=== PATIENT | female | born 1990 | race Caucasian/White ===

== ENCOUNTER → 2020-07-03 09:15 | Outpatient (BNVA) | payer BC, SELFPAY | PROVIDERS: PCP Internal Medicine; Visit Provider Advanced Practice Midwife | DX: Z34.90 Encounter for supervision of normal pregnancy, unspecified, unspecified trimester (principal) | CPT/HCPCS: 81025 ==

== ENCOUNTER → 2020-07-16 14:07 | Outpatient (BNVA) | payer BC, SELFPAY | PROVIDERS: PCP Internal Medicine; Visit Provider Advanced Practice Midwife | DX: Z13.89 Encounter for screening for other disorder (principal) | CPT/HCPCS: 99212 ==

== ENCOUNTER 2020-07-18 09:14 | Outpatient (REF) | payer BC, SELFPAY ==
--- NOTE | 2020-07-18 09:23 | US_ITS ---
EXAMINATION: OBSTETRICAL ULTRASOUND, FIRST TRIMESTER HISTORY: 30-year-old at 3 weeks of gestation NT screening COMPARISON: 06/28/2019 TECHNIQUE: Real time transabdominal imaging with color and M-mode Doppler. FINDINGS: A single, live IUP CRL of 81.1 mm c/w 14.1wks is noted. Heart Rate: 144 beats per minute. Normal yolk sac seen. NT was 1.2.mm. NB Present The embryo appears sonographically wnl for this GA. Left ovary is within normal, right ovary Fundal fibroid: 4.7 x 3.9 x 4.6 cm GESTATIONAL AGE: 1. Established GA: 13.3 wks 2. GA from AUA: 14.1 wks ESTIMATED DATE OF DELIVERY: 1. Established CANDELARIO: 01/20/2021 2. CANDELARIO from [facility]: 01/15/2021 US/US OB 1T nuc measure IMPRESSION: 1. A single live IUP 2. Size equals dates 3. NT of 1.2 mm MFM Consultation: I reviewed the ultrasound findings along with significance of NT measurement. The NT of less than 3mm is generally reassuring. However, the sensitivity for T21 detection is only 60%. I reviewed the availability of serum aneuploidy screening which includes cell-free DNA and placental protein based tests. I discussed the sensitivity, false-positive rate, and other limitations associated with each test. I also reviewed the availability of invasive diagnostic tests that are associated small but definite risk of miscarriage. We also reviewed the differences between screening tests and diagnostic tests. After our discussion, she opted for the First trimester screening that is based on cell-free DNA or non-invasive testing (NIPT). The result will be faxed to your office in approximately 7 days. A follow up at 18 weeks for survey has been scheduled. Thank you very much for this referral. Total Time spent 20 (2,10,8 ) min.
== END 2020-07-18 09:15 | disposition home or self-care (01) ==
LOC: HO.US 09:14
PROVIDERS: PCP Internal Medicine; Visit Provider Advanced Practice Midwife
DX: Z36.82 Encounter for antenatal screening for nuchal translucency (principal); Z34.90 Encounter for supervision of normal pregnancy, unspecified, unspecified trimester; Z3A.01 Less than 8 weeks gestation of pregnancy
CPT/HCPCS: 76813

== ENCOUNTER 2020-07-25 12:54 | Outpatient (REF) | payer BC, SELFPAY ==
[2020-07-25 15:23] LABS: MANUAL DIFF FLAG NO
[2020-07-25 15:39] LABS: Basophils Absolute Auto 0.1 X10*3/uL (0.0-0.2); Basophils Percent Auto 0.5 % (0-2); Eosinophils Absolute Auto 0.5 X10*3/uL (0.0-0.4); Eosinophils Percent Auto 4.8 % (0-4); Hematocrit 33.6 % (37-47); Hemoglobin 11.3 g/dl (12.0-16.0); Imm Gran Abs Auto 0.03 X10*3/uL (0.00-0.03); Imm Gran Pct Auto 0.3 % (0.0-0.4); Lymphocytes Absolute Auto 2.9 X10*3/uL (1.2-4.9); Lymphocytes Percent Auto 26.7 % (20-40); Mean Corpuscular HGB Conc 33.6 g/dl (31.0-35.0); Mean Corpuscular Volume 86.4 fL (80-98); Mean Platelet Volume 10.6 fL (9.4-12.3); Monocytes Absolute Auto 0.9 X10*3/uL (0.1-1.2); Neutrophils Absolute Auto 6.5 X10*3/uL (2.0-8.3); Neutrophils Percent Auto 59.7 % (45-73); Platelet Count 260 X10*3/uL (160-400); Red Blood Count 3.89 X10*6/uL (4.20-5.50)
[2020-07-25 16:17] LABS: Amphetamine Screen Urine Not Detected (Not Detect); Barbiturates, Urine Not Detected (Not Detect); Benzodiazepines Screen Urine Not Detected (Not Detect); Cannabinoid Screen Urine Not Detected (Not Detect); Cocaine Screen Urine Not Detected (Not Detect); Opiate Screen Urine Not Detected (Not Detect); Phencyclidine Screen Urine Not Detected (Not Detect)
[2020-07-26 13:21] LABS: BV Int Neg Control Negative (Negative); BV Int Pos Control Positive (Positive)
[2020-07-26 16:13] LABS: Varicella IgG Antibody <135.00 index
[2020-07-26 17:43] LABS: C. trachomatis RNA TMA NOT DETECTED (NOT DETECTED); N. gonorrhoeae RNA TMA NOT DETECTED (NOT DETECTED)
[2020-07-28 08:04] LABS: HIV AB/AG Nonreactive (Nonreactive); HIV Num 1 0.05 S/CO (0.00-0.99); ~HepC Num1 0.15 S/CO (0.00-0.79); ~Hepatitis C Antibody Nonreactive (Nonreactive)
[2020-07-28 08:23] LABS: HBsAGNum1 0.19 S/CO (0.00-0.99); Hepatitis B Surface Antigen Negative (Negative)
[2020-07-28 14:32] LABS: Syphilis Screen Nonreactive (Nonreactive)
== END 2020-07-25 12:55 | disposition home or self-care (01) ==
LOC: HO.LAB 12:54
PROVIDERS: PCP Internal Medicine; Visit Provider Advanced Practice Midwife
DX: O34.219 Maternal care for unspecified type scar from previous cesarean delivery (principal); Z3A.14 14 weeks gestation of pregnancy
CPT/HCPCS: 80307; 81003; 85025; 86762; 86780; 86787; 86803; 86850; 86900; 86901; 87086; 87340; 87389; 87480; 87491; 87510; 87591; 87660; 88142; 99212

== ENCOUNTER 2020-08-22 09:03 | Outpatient (REF) | payer BC, SELFPAY ==
--- NOTE | ~2020-08-22 | US_ITS ---
EXAMINATION: US OBSTETRICAL CLINICAL INFORMATION: 30-year-old at 18.3 weeks of gestation Screening for anomaly COMPARISON: 07/18/2020 TECHNIQUE: Real-time transabdominal ultrasound was performed using C1-5 megahertz transducer. Transvaginal ultrasound was performed using an endovaginal probe. FINDINGS: A single, active, fetus is seen in breech presentation. The placenta is anterior without previa, and the amniotic fluid volume is wnl. MEASUREMENTS: 1. Biparietal Diameter: 4.1 cm; 18.4 wks 2. Occipital Frontal Diameter: 5.3 cm 3. Head Circumference: 15.5 cm; 18.4 wks 4. Abdominal Circumference: 12.9 cm; 18.4 wks 5. Femur Length: 2.7 cm; 18.1 wks 6. Humerus Length: 2.6 cm; 18.2 wks 7. Tibia Length: 2.4 cm; 18.4 wks 8. Ulna Length: 2.4 cm; 18.4 wks 9. Lateral ventricle: 0.6 cm 10. Cerebellum: 1.9 cm; 19.4 wks 11. Cisterna Magna: 0.6 cm 12. Nuchal Fold: 2.5 mm 13. Heart Rate: 134 beats per minute Rt ovary: Unable to visualize Lt ovary: normal Cervical length 3.1 cm on T/V On transvaginal ultrasound, an uterine fibroid 6.4 x 4.5 x 4.7 cm located in the posterior lower uterine segment and is pushing the internal cervical canal anteriorly. In addition heterogeneous soft tissue is noted. The level of the internal canal with the blood vessel that has the maternal arterial signal, suggestive of the endocervical polyp. GESTATIONAL AGE: 1. Established GA: 18.3 wks 2. GA from AUA: 18.4 wks ESTIMATED DATE OF DELIVERY: 1. Established CANDELARIO: 01/20/2021 2. CANDELARIO from AUA: 01/19/2021 ANATOMY: The visualized anatomy includes but not limited to: 1. Cranium: Normal 2. Intracranial anatomy: cavum septum pellucidi, lateral ventricles, choroid plexus, cerebellum, posterior fossa, third and fourth ventricles. 3. face: orbits, lip/palate, profile, nasal bone 4. Heart: four-chamber view of the heart, ventricular septum, foramen ovale, pulmonary vein, left and right outflow tracts, three-vessel view, 3 vessel trachea view, aortic and ductal arches, situs.. 5. Diaphragm: Normal 6. Abdominal wall: Normal 7. Cord Insertion: Normal 8. Spine: Cervical, thoracic, lumbar, sacral. 9. Stomach: Normal size and shape 10. Right Kidney: Normal 11. Left Kidney: Normal 12. 3 vessel cord: Normal 13. Upper extremity: Open hands, fifth digit. 14. Lower extremity: Tibia, fibula, bilateral feet. 15. Bladder: Normal 16. Genitalia: Female, patient aware US/ OB /maternal detail IMPRESSION: 1. Single, living, intrauterine with appropriate biometry. 2. Normal survey 3. Uterine fibroid in the lower posterior uterine segment impinging on the cervical canal. 4. Normal cervical length, endocervical polyp at the level of the internal os. DISCUSSION: I reviewed today's ultrasound findings. We discussed the limitations of ultrasound in diagnosing aneuploidy and other congenital abnormalities. I reviewed the differences between screening test and diagnostic test. Amniocentesis was discussed and declined. I informed her of the presence of uterine fibroid in the posterior lower uterine segment that is pushing up against the cervix deviating the endocervical canal anteriorly. She has had a delivery and is planning on a repeat elective delivery. Her fibroid noted today should not be in the operative field. I advised her about the possibility of the fibroid degeneration. I reassured her that it is self limiting and can be managed symptomatically. She was informed that the baseline incidence of congenital abnormalities is approximately 3-5%. Not all these conditions are diagnosable in utero. RECOMMENDATIONS: 1. No further ultrasound has been scheduled at this time. Thank you for allowing me to participate in her care. Visiting time 30 minutes. Majority of this visit was spent reviewing and discussing her care.
== END 2020-08-22 09:04 | disposition home or self-care (01) ==
LOC: HO.US 09:03
PROVIDERS: Visit Provider Advanced Practice Midwife
DX: O35.9XX0 Maternal care for (suspected) fetal abnormality and damage, unspecified, not applicable or unspecified (principal); Z12.4 Encounter for screening for malignant neoplasm of cervix
CPT/HCPCS: 76811; 76817

== ENCOUNTER 2020-08-27 09:03 | Outpatient (REF) | payer BC, SELFPAY | END 2020-08-27 09:04 | disposition home or self-care (01) | LOC: HO.LAB 09:03 | PROVIDERS: PCP Internal Medicine; Visit Provider Obstetrics & Gynecology | DX: O34.219 Maternal care for unspecified type scar from previous cesarean delivery (principal); O99.012 Anemia complicating pregnancy, second trimester; D64.9 Anemia, unspecified; Z3A.19 19 weeks gestation of pregnancy; Z79.899 Other long term (current) drug therapy | CPT/HCPCS: 81003; 87086; 99212 ==

== ENCOUNTER → 2020-09-24 10:49 | Outpatient (BNVA) | payer BC, SELFPAY | PROVIDERS: PCP Internal Medicine; Visit Provider Advanced Practice Midwife | DX: Z34.90 Encounter for supervision of normal pregnancy, unspecified, unspecified trimester (principal); Z3A.23 23 weeks gestation of pregnancy | CPT/HCPCS: 81003; 99212 ==

== ENCOUNTER 2020-10-30 11:31 | Outpatient (REF) | payer OTHER, SELFPAY ==
[2020-10-30 14:33] LABS: Hematocrit 31.1 % (37-47); Hemoglobin 10.1 g/dl (12.0-16.0); Mean Corpuscular HGB Conc 32.5 g/dl (31.0-35.0); Mean Corpuscular Hemoglobin 29.4 pg (27.0-33.0); Mean Corpuscular Volume 90.7 fL (80-98); Mean Platelet Volume 10.6 fL (9.4-12.3); Platelet Count 248 X10*3/uL (160-400); Red Blood Count 3.43 X10*6/uL (4.20-5.50); Red Cell Distribution Width 14.1 % (11.0-16.0); White Blood Count 9.1 X10*3/uL (4.8-10.8)
[2020-10-30 14:48] LABS: Glucose 1 Hour PP 50gm Dose 77 mg/dL (60-140)
[2020-10-31 03:59] LABS: Syphilis Screen Nonreactive (Nonreactive)
[2020-10-31 09:55] LABS: CT PCR NOT DETECTED (Not Detect.); NG PCR NOT DETECTED (Not Detect.)
== END 2020-10-30 11:32 | disposition home or self-care (01) ==
LOC: HO.LAB 11:31
PROVIDERS: PCP Internal Medicine; Visit Provider Advanced Practice Midwife
DX: O99.013 Anemia complicating pregnancy, third trimester (principal); O34.219 Maternal care for unspecified type scar from previous cesarean delivery; Z3A.21 21 weeks gestation of pregnancy
CPT/HCPCS: 81003; 85027; 86780; 87491; 87591; 99212

== ENCOUNTER → 2020-11-13 09:41 | Outpatient (BNVA) | payer OTHER, SELFPAY | PROVIDERS: Visit Provider Advanced Practice Midwife | DX: O34.13 Maternal care for benign tumor of corpus uteri, third trimester (principal); D25.9 Leiomyoma of uterus, unspecified; N84.1 Polyp of cervix uteri; O99.013 Anemia complicating pregnancy, third trimester; O34.219 Maternal care for unspecified type scar from previous cesarean delivery; Z3A.30 30 weeks gestation of pregnancy | CPT/HCPCS: 81003; 99212 ==

== ENCOUNTER → 2020-11-27 09:43 | Outpatient (BNVA) | payer OTHER, SELFPAY | PROVIDERS: Visit Provider Obstetrics & Gynecology | DX: O34.219 Maternal care for unspecified type scar from previous cesarean delivery (principal); N84.1 Polyp of cervix uteri; O34.10 Maternal care for benign tumor of corpus uteri, unspecified trimester; D25.9 Leiomyoma of uterus, unspecified; Z3A.32 32 weeks gestation of pregnancy | CPT/HCPCS: 90471; 90715; 99212 ==

== ENCOUNTER 2020-11-28 09:43 | Outpatient (REF) | payer OTHER, SELFPAY ==
--- NOTE | ~2020-11-28 | US_ITS ---
EXAMINATION: OBSTETRICAL ULTRASOUND, Follow up HISTORY: 30-year-old at the 32.3 weeks of gestation Size date discrepancy Fibroid COMPARISON: 08/22/2020 TECHNIQUE: Real time transabdominal imaging with color and M-mode Doppler. PRESENTATION: Vertex PLACENTA LOCATION: Posterior without previa AMNIOTIC FLUID: LAURIE 12.3 MEASUREMENTS: 1. Biparietal Diameter: 8.0 cm; 32.0 wks 2. Head Circumference: 30.0 cm; 33.2 wks 3. Abdominal Circumference: 27.8 cm; 22.0 wks 4. Femur Length: 6.0 cm; 31.3 wks 5. Heart Rate: 149 beats per minute WEIGHT: EFW: 1850 grams (4 lbs 10 oz) -- 23 %. Normal views of the posterior fossa, lateral ventricles, four-chamber view of the heart, stomach, bladder and kidneys. Fibroid in the left lateral uterine wall was noted. 4.3 x 4.9 x 4.9 cm, stable BIOPHYSICAL PROFILE: Motion: 2 Tone: 2 Breathin Amniotic Fluid: 2 Total score: 8/8 GESTATIONAL AGE: 1. Established GA: 32.3 wks 2. GA from AUA: 32.2 wks ESTIMATED DATE OF DELIVERY: 1. Established CANDELARIO: 01/20/2021 2. CANDELARIO from AUA: 01/21/2021 US/US OB follow up IMPRESSION: 1. A single active fetus is in vertex presentation 2. Size equals dates 3. Reassuring biophysical profile with normal amniotic fluid volume I reviewed the findings and gave her reassurance. The fibroid is stable. She is asymptomatic. Follow up when necessary. Thank you very much for this referral. This note was generated with a voice recognition program. Please excuse any errors which may have been overlooked during my review of this note. Sometimes these errors may affect the content or meaning of a given sentence.
== END 2020-11-28 09:44 | disposition home or self-care (01) ==
LOC: HO.US 09:43
PROVIDERS: Visit Provider Obstetrics & Gynecology
DX: O34.219 Maternal care for unspecified type scar from previous cesarean delivery (principal); O34.13 Maternal care for benign tumor of corpus uteri, third trimester; D25.9 Leiomyoma of uterus, unspecified; Z3A.32 32 weeks gestation of pregnancy
CPT/HCPCS: 76816

== ENCOUNTER 2021-06-16 13:00 | Outpatient (REF) | payer OTHER, SELFPAY | END 2021-06-16 13:01 | disposition home or self-care (01) | LOC: HO.LAB 13:00 | PROVIDERS: Visit Provider Internal Medicine | DX: Z20.822 Contact with and (suspected) exposure to COVID-19 (principal) | CPT/HCPCS: C9803; U0003; U0005 ==

== ENCOUNTER 2022-06-29 11:12 | Outpatient (REF) | payer OTHER, SELFPAY ==
[2022-06-29 11:43] LABS: COVID-19 Test Negative (Negative); IDNOW Serial# 16C4AD1C
== END 2022-06-29 11:13 | disposition home or self-care (01) ==
LOC: HO.LAB 11:12
PROVIDERS: Visit Provider Internal Medicine
DX: Z20.822 Contact with and (suspected) exposure to COVID-19 (principal)
CPT/HCPCS: 87635; C9803

== ENCOUNTER 2023-03-15 10:48 | Outpatient (AMB) | payer OTHER, SELFPAY ==
[2023-03-15 10:55] VITALS: BP 114/72; BMI 28.2
--- NOTE | 2023-03-15 10:55 | MHC.OFFVIS ---
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 She had her baby 2 years ago by a at [facility] and she is very happy about that she has an 11-year-old and now her 2-year-old. She is still nursing her 2-year-old she nurses her about 3 times a day. 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 She has a Nexplanon in that was put in immediately in the hospital at [facility] during her hospital stay and she has been very happy with it she had irregular bleeding the 1st few months but she has not been having a period at all since then and it did not interfere with breast milk supply either. She tried to pump and give breast milk in a bottle but the baby did not even like that. She likes the Nexplanon because she has not had the irregular bleeding that so many had. She is unsure about future childbearing she may want to try for a boy in the future but she has not fully decided yet. If she wanted to continue with control she would replace the Nexplanon next year. [facility] Surgical History Hx of section Family History (Updated 03/15/23 @ 11:01 by ABEBA Jesus) Maternal Aunt Breast cancer Paternal Grandmother HTN (hypertension) Diabetes Paternal Grandfather Colon cancer Social History Household Members: Spouse and Children Alcohol intake: never Gender identity: Female Female Reproductive History Menstrual Age of Menarche: 14 Duration of menses: 3-5 days control method: implanted Total pregnancies: 2 Full term: 2 Number of Living Children: 2 Date of last pap smear: 07/28/20 (negative) Physical Exam Vital Signs: Last Vital Signs BP 114/72 03/15/23 10:55 BMI result Body Mass Index 28.2 Const General: healthy appearing, comfortable, no acute distress, well developed and alert Nutritional Appearance: average body habitus Orientation/consciousness: patient oriented x3 Limitations: no limitations HEENT Head: Yes normocephalic Neck Neck: Yes normal visual inspection Chest Chest palpation & inspection: normal inspection of the chest Breast/axilla inspection: normal inspection of the breasts and normal inspection of the axillae Breast/axilla palpation: normal palpation of the breasts and normal palpation of the axillae Resp Effort & Inspection: normal respiratory effort GI Inspection: Yes normal to inspection, No Abdominal wall edema and No distended Palpation (GI): Soft to palpation and nontender General: Yes bladder normal to palpation External Female Exam: normal external appearance and normal appearance of the urethra Speculum Exam - Vagina: normal appearance of the vagina, normal palpation and normal vaginal discharge Speculum Exam - Cervix: normal appearance of the cervix, normal palpation and nontender Bimanual exam- vagina & uterus: normal bimanual exam, normal palpation, uterine size normal, bladder normal to palpation, consistency normal, normal palpation, uterine mobility normal, uterine shape normal, No Cervical tenderness present, non-tender and no cervical motion tenderness Bimanual Exam- Adnexa, other: normal adnexae, no masses, normal and No adnexal tenderness Neuro General: patient oriented x3 Assessment & Plan Assessment & Plan (1) Well woman exam with routine gynecological exam: Code(s): Z01.419 - Encounter for gynecological examination (general) (routine) without abnormal findings (2) Cervical cancer screening: Comment: next papdue 2023 Code(s): Z12.4 - Encounter for screening for malignant neoplasm of cervix (3) Lactating mother: Code(s): Z39.1 - Encounter for care and examination of lactating mother (4) Encounter for surveillance of Nexplanon subdermal contraceptive: Code(s): Z30.46 - Encounter for surveillance of implantable subdermal contraceptive Plan -----Discussed in this visit the following: healthy balanced diet, regular and consistent exercise, getting recommended health screens, doing the best she can for her particular health concerns, kegel exercises, pap smear screening and followup recommendations, mammography screening and SBE, normal changes in cycles in her life stage--- . Reviewed her happiness with the Nexplanon she would probably replace it next year. She is not sure when she would want to have another child she still thinking about that. She is still nursing her baby about 3 times a day and she is going to see how it goes in terms of weaning and has no special plans for it. The Nexplanon did not seem to interfere with her breast milk supply at all. She is very very happy that she got to have her vaginal after at [facility] she does not remember much details about the labor but there were all women with her so she does not know if there were nurses doctors or midwives. Discussed how replacement of the Nexplanon which is in perfect site in left arm would would take place. Next year she will be due for a Pap smear last Pap smear in 2020 was negative and normal. Coding Level of Care Code Est Pt Prev Care 18-39y([id number]) Diagnoses Well woman exam with routine gynecological exam Z01.419 Cervical cancer screening Z12.4 Lactating mother Z39.1 Encounter for surveillance of Nexplanon subdermal contraceptive Z30.46
== END 2023-03-15 11:41 | disposition home or self-care (01) ==
PROVIDERS: Visit Provider Advanced Practice Midwife
DX: Z01.419 Encounter for gynecological examination (general) (routine) without abnormal findings (principal); Z39.1 Encounter for care and examination of lactating mother; Z12.4 Encounter for screening for malignant neoplasm of cervix; Z30.46 Encounter for surveillance of implantable subdermal contraceptive
CPT/HCPCS: 99395

== ENCOUNTER 2023-03-15 10:48 | Outpatient (REF) | payer OTHER, SELFPAY ==
[2023-03-15 22:03] LABS: CT PCR NOT DETECTED (Not Detect.); NG PCR NOT DETECTED (Not Detect.)
[2023-03-16 15:40] LABS: BV Int Neg Control Negative (Negative); BV Int Pos Control Positive (Positive)
== END 2023-03-15 10:49 | disposition home or self-care (01) ==
LOC: HO.LNP 10:48
PROVIDERS: Visit Provider Advanced Practice Midwife
DX: Z01.419 Encounter for gynecological examination (general) (routine) without abnormal findings (principal); Z30.46 Encounter for surveillance of implantable subdermal contraceptive
CPT/HCPCS: 0353U; 87480; 87510; 87660; 99395

== ENCOUNTER 2024-01-05 10:40 | Outpatient (AMB) | payer OTHER, SELFPAY ==
[2024-01-05 10:44] VITALS: BP 112/68; BMI 30.3
--- NOTE | 2024-01-05 10:44 | MHC.OFFVIS ---
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 She would like a baby in the future but not yet. She had this 1 placed right after her baby was born at [facility] January 14 3 years ago. She does not get her. With it she has had no negative side effects whatsoever and she likes it and is very much hoping for the sit experience with the next 1. She says she has no symptoms of getting he period, Or ovulation either. PFSH Surgical History Hx of section Family History Maternal Aunt Breast cancer Paternal Grandmother HTN (hypertension) Diabetes Paternal Grandfather Colon cancer Social History Household Members: Spouse and Children Alcohol intake: never Gender identity: Female Female Reproductive History Menstrual Age of Menarche: 14 Duration of menses: other control method: implanted Total pregnancies: 2 Full term: 2 Date of last pap smear: 07/28/20 (negative) History of abnormal pap smear: No Physical Exam Vital Signs: Last Vital Signs BP 112/68 01/05/24 10:44 BMI result Body Mass Index 30.3 Const Other: Her Nexplanon is palpable in her left upper arm in correct site Assessment & Plan Assessment & Plan (1) Encounter for surveillance of Nexplanon subdermal contraceptive: Code(s): Z30.46 - Encounter for surveillance of implantable subdermal contraceptive Category: Medical Plan Discussed replacement of the Nexplanon it is easily palpable so there should be a problem. Discussed that there has no guarantee that she will have the same negligible side effects with the next 1 as everyone Women's experiences a little bit different though hopefully she will experience the amenorrhea that her well as well since she has not getting her menses we can not wait for that because it would be very unpredictable as to when she might get her menses in that would indicate a return to fertility most likely. So we will have her sign now for insurance to reorder approve her Nexplanon in when it arrives at the pharmacy she will be called and we will schedule replacement (removal and replacement in the same day). She is due for Pap smear this year but that can be done at a future visit. If she does feel like she is having any symptoms of ovulation she might want to consider using condoms though it is unlikely at this point, but this is in case it takes a long time for the Nexplanon come. Coding Level of Care Code Est Pt Level 3 (38316) Diagnoses Encounter for surveillance of Nexplanon subdermal contraceptive Z30.46
== END 2024-01-05 11:30 | disposition home or self-care (01) ==
LOC: HO.HWSM 10:40
PROVIDERS: Visit Provider Advanced Practice Midwife
DX: Z30.46 Encounter for surveillance of implantable subdermal contraceptive (principal)
CPT/HCPCS: 99213

== ENCOUNTER → 2024-01-05 10:40 | Outpatient (BNVA) | payer OTHER, SELFPAY | PROVIDERS: Visit Provider Advanced Practice Midwife | DX: Z30.46 Encounter for surveillance of implantable subdermal contraceptive (principal) | CPT/HCPCS: 99212 ==